=== PATIENT | female | born 1955 | race Caucasian/White ===

== ENCOUNTER 2016-12-31 03:24 | Observation (INO) | payer BC ==
[2016-12-31] VITALS (11 sets, daily range): BP systolic 139–188; BP diastolic 70–99; PULSE 60–83; RESP 14–16; TEMP 97.4–98.5; O2SAT 9–99
[2016-12-31] MEDS ORDERED: ZITH500T PO (03:42)
[2016-12-31] MEDS ORDERED: METO50TA PO (03:42)
[2016-12-31] MEDS ORDERED: MORPHINE SULFATE 4 MG/ML INJ IV PUSH ONE (03:45)
[2016-12-31] MEDS ORDERED: SODIUM CHLORIDE 0.9% FLUSH 10 ML FLUSH IVF PRN (03:45)
[2016-12-31] MEDS ORDERED: ONDANSETRON HCL 4 MG/2 ML VIAL IV PUSH ONE ×2 (03:45→04:30)
--- NOTE | 2016-12-31 03:47 | PD ---
HPI Chief Complaint: Chest Pain Time Seen by Provider: 03:41 Travel History International Travel<30 days: No Contact w/Intl Traveler<30days: No Traveled to known affect area: No History of Present Illness HPI 61-year-old female with history of hypertension, recently treated for bronchitis with Zithromax injections in the past few days, presents to the ER today with a substernal and epigastric discomfort which she currently rates at a 7 out of 10. She denies any nausea, vomiting, but has been having some diarrhea. She does not know any alleviating or exacerbating factors. She denies previous histories. Modifying Factors: None Associated Signs & Symptoms: Chest pains, abdominal pains Risk Factors: None PFSH Past Medical History Diminished Hearing: No Hypertension: Yes Tetanus Vaccination: < 5 Years Influenza Vaccination: No Menopausal: Yes Tubal Ligation: Yes Social History Alcohol Use: Yes (SOCIALLY) Tobacco Use: Yes (1PPD) Substance Use: No Allergies-Medications (Allergen,Severity, Reaction): Coded Allergies: No Known Allergies (Unverified , 12/31/16) Reported Meds & Prescriptions Reported Meds & Active Scripts Active Reported Zithromax (Azithromycin) 500 Mg Tab 500 Mg PO DAILY Metoprolol Tartrate 50 Mg Tab 50 Mg PO BID Review of Systems Except as stated in HPI: all other systems reviewed are Neg Physical Exam Narrative GENERAL: Well-developed middle age white female patient currently in mild distress. Awake and oriented 3. SKIN: Focused skin assessment warm/dry. HEAD: Atraumatic. Normocephalic. EYES: Pupils equal and round. No scleral icterus. No injection or drainage. ENT: No nasal bleeding or discharge. Mucous membranes pink and moist. NECK: Trachea midline. No JVD. CARDIOVASCULAR: Regular rate and rhythm. No murmur appreciated. RESPIRATORY: No accessory muscle use. Clear to auscultation. Breath sounds equal bilaterally. GASTROINTESTINAL: Abdomen soft, epigastric tenderness without guarding or rebound, nondistended. Hepatic and splenic margins not palpable. MUSCULOSKELETAL: No obvious deformities. No clubbing. No cyanosis. No edema. NEUROLOGICAL: Awake and alert. No obvious cranial nerve deficits. Motor grossly within normal limits. Normal speech. PSYCHIATRIC: Appropriate mood and affect; insight and judgment normal. Data Data Last Documented VS Vital Signs Date Time Temp Pulse Resp B/P Pulse Ox O2 Delivery O2 Flow Rate FiO2 12/31/16 03:46 81 16 99 Room Air 12/31/16 03:45 188/99 12/31/16 03:30 97.5 Orders Electrocardiogram (12/31/16 03:41) Ckmb (Isoenzyme) Profile (12/31/16 03:41) Complete Blood Count With Diff (12/31/16 03:41) Comprehensive Metabolic Panel (12/31/16 03:41) Magnesium (Mg) (12/31/16 03:41) Prothrombin Time / Inr (Pt) (12/31/16 03:41) Act Partial Throm Time (Ptt) (12/31/16 03:41) Troponin I (12/31/16 03:41) Lipase (12/31/16 03:41) Chest, Single Ap (12/31/16 03:41) Ecg Monitoring (12/31/16 03:41) Bilateral Bp Monitoring (12/31/16 03:41) Iv Access Insert/Monitor (12/31/16 03:41) Oximetry (12/31/16 03:41) Oxygen Administration (12/31/16 03:41) Sodium Chloride 0.9% Flush (Ns Flush) (12/31/16 03:45) Morphine Inj (Morphine Inj) (12/31/16 03:45) Ondansetron Inj (Zofran Inj) (12/31/16 03:45) Ondansetron Inj (Zofran Inj) (12/31/16 04:30) Al-Mag Hy-Si 40-40-4 Mg/Ml Liq (Mag-Al P (12/31/16 04:45) Lidocaine 2% Viscous (Xylocaine 2% Visco (12/31/16 04:45) Labs Laboratory Tests Test 12/31/16 03:50 White Blood Count 10.6 TH/MM3 Red Blood Count 4.96 MIL/MM3 Hemoglobin 15.9 GM/DL Hematocrit 46.9 % Mean Corpuscular Volume 94.4 FL Mean Corpuscular Hemoglobin 32.1 PG Mean Corpuscular Hemoglobin 34.0 % Concent Red Cell Distribution Width 14.2 % Platelet Count 207 TH/MM3 Mean Platelet Volume 7.5 FL Neutrophils (%) (Auto) 70.5 % Lymphocytes (%) (Auto) 18.9 % Monocytes (%) (Auto) 6.2 % Eosinophils (%) (Auto) 3.4 % Basophils (%) (Auto) 1.0 % Neutrophils # (Auto) 7.5 TH/MM3 Lymphocytes # (Auto) 2.0 TH/MM3 Monocytes # (Auto) 0.7 TH/MM3 Eosinophils # (Auto) 0.4 TH/MM3 Basophils # (Auto) 0.1 TH/MM3 CBC Comment DIFF FINAL Differential Comment Prothrombin Time 11.3 SEC Prothromb Time International 1.0 RATIO Ratio Activated Partial 29.9 SEC Thromboplast Time Sodium Level 142 MEQ/L Potassium Level 3.9 MEQ/L Chloride Level 108 MEQ/L Carbon Dioxide Level 26.5 MEQ/L Anion Gap 8 MEQ/L Blood Urea Nitrogen 22 MG/DL Creatinine 0.80 MG/DL Estimat Glomerular Filtration 73 ML/MIN Rate Random Glucose 90 MG/DL Calcium Level 9.0 MG/DL Magnesium Level 2.5 MG/DL Total Bilirubin 0.4 MG/DL Aspartate Amino Transf 59 U/L (AST/SGOT) Alanine Aminotransferase 42 U/L (ALT/SGPT) Alkaline Phosphatase 86 U/L Total Creatine Kinase 50 U/L Troponin I LESS THAN 0.02 NG/ML Total Protein 7.3 GM/DL Albumin 3.9 GM/DL Lipase 193 U/L MDM Medical Decision Making Medical Screen Exam Complete: Yes Emergency Medical Condition: Yes Medical Record Reviewed: Yes Interpretation(s) EKG shows NSR, no ST elevation or depression, and no arrhythmias. No significant T-wave inversions. Laboratory Tests Test 12/31/16 03:50 Hemoglobin 15.9 GM/DL (11.6-15.3) Hematocrit 46.9 % (35.0-46.0) Neutrophils (%) (Auto) 70.5 % (16.0-70.0) Chloride Level 108 MEQ/L (98-107) Blood Urea Nitrogen 22 MG/DL (7-18) Estimat Glomerular Filtration 73 ML/MIN (>89) Rate Aspartate Amino Transf 59 U/L (15-37) (AST/SGOT) Troponin I LESS THAN 0.02 NG/ML (0.02-0.05) Last 24 hours Impressions Chest X-Ray 12/31/16 8775 Signed Impressions: Service Date/Time: December 03:41 - CONCLUSION: 1. Bilateral hyperinflation which could indicate underlying emphysema. 2. No evidence of pneumonia. Elmer Hebert MD Differential Diagnosis Chest and abdominal painsgastritis versus gastroenteritis versus ammonia versus ACS Narrative Course Lab work did not show any signs of metabolic issues or significant troponin elevations. EKG did not show ST changes or dysrhythmias. Chest x-ray was otherwise unremarkable for any pneumonia or other acute processes. At this point, my plan would be to admit the patient for further evaluation a chest pain center. Patient states she has both parents who of heart problems. She smokes and has hypertension. Moderate risk. Diagnosis Primary Impression: Chest pain Admitting Information Admitting Physician Requests: Admit Elias Chatterjee MD Dec 31, 2016 03:47
[2016-12-31 04:06] LABS: AUTOMATED NEUTROPHIL # 7.5 TH/MM3 (1.8-7.7); BASOPHIL # 0.1 TH/MM3 (0-0.2); EOSINOPHIL # 0.4 TH/MM3 (0-0.4); EOSINOPHIL % 3.4 % (0.0-4.0); HEMATOCRIT 46.9 % (35.0-46.0); HEMO FLAGS DIFF FINAL; LYMPH % 18.9 % (9.0-44.0); MEAN CELL VOLUME 94.4 FL (80.0-100.0); MEAN CORPUSCULAR HEMOGLOBIN 32.1 PG (27.0-34.0); MONO % 6.2 % (0.0-8.0); NEUT % 70.5 % (16.0-70.0); PLATELET COUNT 207 TH/MM3 (150-450); RED BLOOD COUNT 4.96 MIL/MM3 (4.00-5.30); RED CELL DISTRIBUTION WIDTH 14.2 % (11.6-17.2); WHITE BLOOD COUNT 10.6 TH/MM3 (4.0-11.0)
[2016-12-31 04:17] LABS: APTT (PATIENT) 29.9 SEC (24.3-30.1); PROTHROMBIN TIME - PATIENT 11.3 SEC (9.8-11.6)
--- NOTE | 2016-12-31 04:21 | RADRPT ---
EXAM DATE/TIME: 12/31/2016 03:41 [facility] COMPARISON: No previous studies available for comparison. INDICATIONS : Chest pain. MEDICAL HISTORY : None. SURGICAL HISTORY : None. ENCOUNTER: Initial ACUITY: 1 day PAIN SCORE: 4/10 LOCATION: Bilateral chest FINDINGS: A single view of the chest demonstrates the lungs to be symmetrically hyperinflated without evidence of mass, infiltrate or effusion. The cardiomediastinal contours are unremarkable. Osseous structure s are intact. CONCLUSION: 1. Bilateral hyperinflation which could indicate underlying emphysema. 2. No evidence of pneumonia. Elmer Hebert MD on December 31, 2016 at 4:19 Board Certified Radiologist. This report was verified electronically.
[2016-12-31 04:23] LABS: ALKALINE PHOSPHATASE 86 U/L (45-117); TOTAL BILIRUBIN ADULT 0.4 MG/DL (0.2-1.0)
[2016-12-31 04:28] LABS: ALT (GPT) 42 U/L (10-53); ANION GAP 8 MEQ/L (5-15); AST (GOT) 59 U/L (15-37); BICARBONATE 26.5 MEQ/L (21.0-32.0); BLOOD UREA NITROGEN 22 MG/DL (7-18); CHLORIDE 108 MEQ/L (98-107); CREATINE KINASE 50 U/L (26-192); GLOMERULAR FILTRATION RATE 73 ML/MIN (>89); MAGNESIUM 2.5 MG/DL (1.5-2.5); POTASSIUM 3.9 MEQ/L (3.5-5.1); SODIUM (NA) 142 MEQ/L (136-145)
[2016-12-31] MEDS ORDERED: SODIUM CHLORIDE 0.9% FLUSH 10 ML FLUSH IV FLUSH PRN (04:45)
[2016-12-31] MEDS ORDERED: LIDOCAINE VISCOUS 2% SOLN 15 ML UDC PO ONE (04:45)
[2016-12-31] MEDS ORDERED: ALUMINUM/MAGNESIUM/SIMETH 30 ML CUP PO ONE (04:45)
[2016-12-31] MEDS ORDERED: METOPROLOL TARTRATE 50 MG TAB PO ONE (05:30)
[2016-12-31 07:36] LABS: CREATINE KINASE 38 U/L (26-192)
[2016-12-31] MEDS ORDERED: SODIUM CHLORIDE 0.9% FLUSH 10 ML FLUSH IV FLUSH SCH (09:00)
--- NOTE | 2016-12-31 09:26 | HHI.HP ---
HPI Primary Care Physician Hardik Fenton DO Chief Complaint Chest pain History of Present Illness This is a 61-year-old female that presents to ED via private vehicle with a complaint of a chest discomfort that began 10:00 last evening while she is playing with her grandchildren. States it lasted a couple hours. Tried Tums thinking that would help but it did not. Notice that it hurt more when she would drink water. She was little nauseous with a little diaphoretic with it. No shortness of breath. Denies history of CAD. Cannot recall ever having a stress test. She also states that she has had some sinus drainage and was started on Zithromax yesterday at an urgent care center. Review of Systems General: Patient denies fevers, chills recent, and recent travel HEENT: Patient denies headache, sore throat, difficulty swallowing however it seemed the discomfort was worsened when she swallowed water. She's had some postnasal drainage as well.. Cardiovascular: Has the chest discomfort as mentioned above. Denies sensation of heart beating rapidly or irregularly. No syncope. She was diaphoretic. Respiratory: Denies shortness of breath or inspirational chest discomfort. Denies coughing wheezing or hemoptysis. GI: She was nauseous. Patient denies vomiting, diarrhea, abdominal pain, bloody stools. Musculoskeletal: Patient denies joint pain or edema. Denies calf pain or edema. Neurovascular: Patient denies numbness, tingling, weakness in extremities. Denies headache. Endocrine: Denies polyuria and polydipsia. Hematologic: Denies easy bruising. Skin: Denies rash or itching. Past Family Social History Allergies: Coded Allergies: No Known Allergies (Unverified , 12/31/16) Past Medical History Hypertension and tobacco abuse. Denies hyperlipidemia diabetes and CAD. Past Surgical History Tubal ligation. Reported Medications Reported Meds & Active Scripts Active Reported Zithromax (Azithromycin) 500 Mg Tab 500 Mg PO DAILY Metoprolol Tartrate 50 Mg Tab 50 Mg PO BID Active Ordered Medications Current Medications Medications (Trade) Dose Ordered Sig/Jeniffer Route Start Time Stop Time Status Last Admin (NS Flush) 2 ml UNSCH PRN IVF 12/31/16 03:45 12/31/16 04:33 (NS Flush) 2 ml UNSCH PRN IV FLUSH 12/31/16 04:45 (NS Flush) 2 ml BID IV FLUSH 12/31/16 09:00 Family History Her mother had an AK at age 75. Social History Patient has smoked one pack of cigarettes daily for 35 years. Denies alcohol or illicit drugs. She is . She works in sales. Physical Exam Vital Signs Vital Signs Date Time Temp Pulse Resp B/P Pulse Ox O2 Delivery O2 Flow Rate FiO2 12/31/16 07:22 97.6 60 16 139/76 97 12/31/16 05:49 70 14 150/71 90 Room Air 12/31/16 05:05 96 21 12/31/16 04:43 76 16 186/91 96 Room Air 12/31/16 03:46 81 16 99 Room Air 12/31/16 03:45 99 Room Air 12/31/16 03:45 81 16 188/99 99 Room Air 12/31/16 03:45 16 99 Room Air 12/31/16 03:40 83 16 181/97 98 Room Air 12/31/16 03:30 97.5 77 16 144/82 98 Room Air Physical Exam GENERAL: This is a well-nourished, well-developed patient, in no apparent distress. Patient speaks in clear complete sentences. Patient is pleasant. HEENT: Head is atraumatic and normocephalic. Neck is supple without lymphadenopathy and trachea is midline. No JVD or carotid bruits. CARDIOVASCULAR: Regular rate and rhythm without murmurs, gallops, or rubs. RESPIRATORY: Clear to auscultation. Breath sounds equal bilaterally. No wheezes , rales, or rhonchi. Chest wall is nontender. No use of accessory muscles. GASTROINTESTINAL: Abdomen is nontender, nondistended. Abdomen soft. No obvious pulsatile mass or bruit. No CVA tenderness. Strong femoral pulses bilaterally. Normal bowel sounds in all quadrants. MUSCULOSKELETAL: Patient is moving upper and lower extremities freely. No calf tenderness or edema, no Homans sign. Strong pulses in upper and lower extremities. NEUROLOGICAL: Patient is alert and oriented. Cranial nerves 2-12 are grossly intact. No focal deficits and speech is clear. SKIN: No rash and turgor is normal. Laboratory Laboratory Tests Test 12/31/16 12/31/16 03:50 06:55 White Blood Count 10.6 Red Blood Count 4.96 Hemoglobin 15.9 Hematocrit 46.9 Mean Corpuscular Volume 94.4 Mean Corpuscular Hemoglobin 32.1 Mean Corpuscular Hemoglobin 34.0 Concent Red Cell Distribution Width 14.2 Platelet Count 207 Mean Platelet Volume 7.5 Neutrophils (%) (Auto) 70.5 Lymphocytes (%) (Auto) 18.9 Monocytes (%) (Auto) 6.2 Eosinophils (%) (Auto) 3.4 Basophils (%) (Auto) 1.0 Neutrophils # (Auto) 7.5 Lymphocytes # (Auto) 2.0 Monocytes # (Auto) 0.7 Eosinophils # (Auto) 0.4 Basophils # (Auto) 0.1 CBC Comment DIFF FINAL Differential Comment Prothrombin Time 11.3 Prothromb Time International 1.0 Ratio Activated Partial 29.9 Thromboplast Time Sodium Level 142 Potassium Level 3.9 Chloride Level 108 Carbon Dioxide Level 26.5 Anion Gap 8 Blood Urea Nitrogen 22 Creatinine 0.80 Estimat Glomerular Filtration 73 Rate Random Glucose 90 Calcium Level 9.0 Magnesium Level 2.5 Total Bilirubin 0.4 Aspartate Amino Transf 59 (AST/SGOT) Alanine Aminotransferase 42 (ALT/SGPT) Alkaline Phosphatase 86 Total Creatine Kinase 50 38 Troponin I LESS THAN 0.02 LESS THAN 0.02 Total Protein 7.3 Albumin 3.9 Lipase 193 Result Diagram: 12/31/1634912/31/16349 Imaging Last 24 hours Impressions Chest X-Ray 12/31/16 034 Signed Impressions: Service Date/Time: December 03:41 - CONCLUSION: 1. Bilateral hyperinflation which could indicate underlying emphysema. 2. No evidence of pneumonia. Elmer Hebert MD Course EKGs have sinus rhythm without significant ST segment depressions or elevations. Assessment and Plan Assessment and Plan * Chest pain: Patient has had serial cardiac enzymes and EKGs for ruling out purposes. She was seen by Dr. Crystal cardiology in the chest pain center and will have a Francisco protocol ETT. She'll be discharged home if her stress test is nonischemic. * Tobacco abuse: Patient has been counseled on importance of smoking cessation. * Hypertension: Continue current medication. Patient is stable at this time. She is agreeable to this plan. Chucky Abebe Dec 31, 2016 09:26
[2016-12-31] MEDS ORDERED: REGADENOSON INJ 0.4 MG/5 ML SYR ONE (13:43)
--- NOTE | 2016-12-31 14:58 | RADRPT ---
EXAM DATE/TIME: 12/31/2016 12:54 [facility] COMPARISON: No previous studies available for comparison. INDICATIONS : Substernal chest pain. Angina. DOSE: 25.9 mCi Tc99m Myoview at stress. 8.7 mCi Tc99m Myoview at rest. 0.4 mg Lexiscan STRESS SYMPTOMS: Dyspnea, stomach pain and headache. EJECTION FRACTION: 70% MEDICAL HISTORY : Hypertension. Smoker. SURGICAL HISTORY : Tubal ligation. ENCOUNTER: Initial ACUITY: 1 day PAIN SCALE: 7/10 LOCATION: Substernal chest TECHNIQUE: The patient underwent pharmacologic stress with infusion of prescribed dose. Continuous ECG tracing was monitored during stress. Gated SPECT imaging was performed after stress and conventional SPECT i maging was performed at rest. The examination was performed on a SPECT/CT scanner, both attenuation and non-corrected datasets were reviewed. FINDINGS: DISTRIBUTION: The maximum perfused segment at stress is in the anterolateral wall. PERFUSION STUDY: The pattern of perfusion at stress is within normal limits. GATED STUDY: There is intact wall motion and thickening without hypokinetic or dyskinetic segments. CONCLUSION: 1. No significant reversibility to suggest ischemia. 2. Normal wall motion with ejection fraction 70%. RISK CATEGORY: Low (<1% Annual Mortality Rate) Jaime Darby MD on December 31, 2016 at 14:52 Board Certified Radiologist. This report was verified electronically.
--- NOTE | 2016-12-31 15:17 | HHI.DCPOC ---
Discharge Care Plan Diagnosis: (1) Chest pain (2) Hypertension (3) Tobacco abuse Goals to Promote Your Health * To prevent worsening of your condition and complications * To maintain your health at the optimal level Directions to Meet Your Goals Take your medications as prescribed Follow your dietary instruction Follow activity as directed Keep your appointments as scheduled Take your immunizations and boosters as scheduled If your symptoms worsen call your PCP, if no PCP go to Urgent Care Center or Emergency Room Smoking is Dangerous to Your Health. Avoid second hand smoke Call the 24-hour hour crisis hotline for domestic abuse at Chucky Abebe Dec 31, 2016 15:17
--- NOTE | 2016-12-31 17:17 | TR ---
Date Performed: 12/31/2016 Time Performed: 13:48:54 DOCTOR: Felecia Crystal DRUG LIST: CLINICAL HISTORY: REASON FOR TEST: CHEST PAIN REASON FOR ENDING: OBSERVATION: CONCLUSION: Lexiscan stress test was performed under standard four minute protocol. Radionuclid e was injected one minute prior to ending the test. No electrocardiographic abormalities were present to suggest ischemia. Nuclear imaging and interpretation are pending. COMMENTS:
--- NOTE | 2016-12-31 17:19 | TR ---
Date Performed: 12/31/2016 Time Performed: 10:05:17 DOCTOR: Felecia Crystal DRUG LIST: CLINICAL HISTORY: REASON FOR TEST: Chest pain REASON FOR ENDING: OBSERVATION: CONCLUSION: Attempted armand protocol. Test stopped secondary to shortness of breath and leg fati josy. No reproducible chest discomfort or pain. Maximum LN=571 % Target HR Achieved=72.0% Maximum BP=1 42/86 Total Exercise Time=7:24 COMMENTS:
--- NOTE | 2016-12-31 17:19 | EKG ---
Date Performed: 12/31/2016 Time Performed: 11:05:38 PTAGE: 61 years EKG: Sinus rhythm WITH FIRST DEGREE AV BLOCK ABNORMAL ECG Since PREVIOUS TRACING , no significant change noted PREVIOUS TRACIN12/31/2016 07.22 DOCTOR: Felecia Crystal Interpretating Date/Time 12/31/2016 17:17:27
--- NOTE | 2016-12-31 17:24 | EKG ---
Date Performed: 12/31/2016 Time Performed: 07:22:55 PTAGE: 61 years EKG: Sinus rhythm NORMAL ECG Since PREVIOUS TRACING , no significant change noted DOCTOR: Felecia Crystal Interpretating Date/Time 12/31/2016 17:22:38
--- NOTE | 2016-12-31 17:25 | EKG ---
Date Performed: 12/31/2016 Time Performed: 03:41:55 PTAGE: 61 years EKG: Sinus rhythm POSSIBLE LEFT ATRIAL ENLARGEMENT POSSIBLE RIGHT VENTRICULAR CONDUCTION DELAY BORDERLINE ECG NO PREVIOUS TRACING DOCTOR: Felecia Crystal Interpretating Date/Time 12/31/2016 17:23:43
== END 2016-12-31 16:37 | disposition home or self-care (01) ==
LOC: NEPC 03:24 → NEDA 04:41 → NEPHCDU 06:38
PROVIDERS: ADMIT Internal Medicine Cardiovascular Disease; ATTEND Internal Medicine Cardiovascular Disease
DX: R07.9 Chest pain, unspecified (principal); I10 Essential (primary) hypertension; I44.0 Atrioventricular block, first degree; F17.210 Nicotine dependence, cigarettes, uncomplicated
CPT/HCPCS: 71010; 78452; 80053; 82550; 83690; 83735; 84484; 85025; 85610; 85730; 93005; 93017; 96374; 99285; A9502; G0378; J2405; J2785

== ENCOUNTER 2017-09-01 10:31 | Emergency (ER) | payer BC ==
[~2017-09-01] VITALS: Ht 157.5 cm; Wt 72.0 kg
[~2017-09-01 10:31] MED LIST: METO50TA PO; ZITH500T PO
[2017-09-01 10:43] VITALS: BP 171/81; PULSE 64; RESP 17; TEMP 98.4; O2SAT 97
--- NOTE | 2017-09-01 11:02 | PD ---
HPI Chief Complaint: Musculoskeletal Complaint Time Seen by Provider: 10:52 Travel History International Travel<30 days: No Contact w/Intl Traveler<30days: No Traveled to known affect area: No History of Present Illness HPI 61-year-old female presents to the emergency department with complaint of right hand, wrist, forearm pain after tripping over a sidewalk and falling today. She denies hitting her head or loss of consciousness. Denies neck pain or back pain. Denies other extremity pain. Denies chest pain, shortness breath, abdominal pain, vomiting. Rates pain 8/10. Describes it as throbbing. Has taken Advil 800 mg an hour ago for pain. Says she has not moved her arm at all because she is scared to. Pain radiates up the arm at times. Pain is constant. Primary care provider is in [facility]. No known allergies. History of hypertension. Has no other medical complaints. No other modifying factors or associated signs and symptoms. PFSH Past Medical History Heart Rhythm Problems: No Cardiac Catheterization: No Cardiovascular Problems: Yes High Cholesterol: No Congestive Heart Failure: No Diabetes: No Diminished Hearing: No Heparin Induced Thrombocytopen: No Hypertension: Yes Tetanus Vaccination: < 5 Years Menopausal: Yes Tubal Ligation: Yes Past Surgical History Coronary Artery Bypass Graft: No Family History Family Myocardial Infarction: Yes (mother, father) Social History Alcohol Use: Yes (SOCIALLY) Tobacco Use: Yes (quit 8 days ago ) Substance Use: No Allergies-Medications (Allergen,Severity, Reaction): Coded Allergies: No Known Allergies (Unverified Adverse Reaction, Unknown, 09/01/17) Reported Meds & Prescriptions Reported Meds & Active Scripts Active Ibuprofen 800 Mg Tab 800 Mg PO Q6HR PRN Reported Metoprolol Tartrate 50 Mg Tab 50 Mg PO BID Review of Systems Except as stated in HPI: all other systems reviewed are Neg Physical Exam Narrative GENERAL: Well-nourished, well-developed female patient, in no acute distress SKIN: Warm and dry. HEAD: Atraumatic. Normocephalic. EYES: Pupils equal and round. No scleral icterus. No injection or drainage. ENT: Mucosa pink and moist. Airway patent. NECK: Trachea midline. CARDIOVASCULAR: Regular rate. RESPIRATORY: No accessory muscle use. GASTROINTESTINAL: Rounded. MUSCULOSKELETAL: Right upper extremity is supple nontender with 2+ radial pulse and sensory intact; patient guarding and I am unable to get a good assessment; she will not move her fingers; she is able to extend her arm out and denies elbow pain; she will not allow me to palpate the extremity at all; has greater than 45 abduction of the right shoulder without pain; the wrist appears mildly edematous, without erythema or ecchymosis. No obvious deformities. No clubbing. No cyanosis. NEUROLOGICAL: Awake and alert. Oriented 3. No obvious cranial nerve deficits. Motor grossly within normal limits. Normal speech. PSYCHIATRIC: Appropriate mood and affect; insight and judgment normal. Data Data Last Documented VS Vital Signs Date Time Temp Pulse Resp B/P (MAP) Pulse Ox O2 Delivery O2 Flow Rate FiO2 09/01/17 10:43 98.4 64 17 171/81 (111) 97 Orders Orders Forearm (2vws) (09/01/17 10:56) Hand, Complete (Pfx3xls) (09/01/17 10:56) Wrist, Complete (Bpf1sqw) (09/01/17 10:56) Acetamin-Hydrocod 325-5 Mg ([place] 5-325 (09/01/17 11:30) Ed Discharge Order (09/01/17 12:17) Splint Or Brace Apply/Monitor (09/01/17 12:17) Cockup Hand Splint (09/01/17 ) MDM Medical Decision Making Medical Screen Exam Complete: Yes Emergency Medical Condition: Yes Medical Record Reviewed: Yes Differential Diagnosis Fall, fracture, sprain, dislocation Narrative Course 61-year-old female with right hand, wrist, forearm pain after mechanical fall today. Denies hitting her head or loss of consciousness. Denies neck pain or back pain. I am unable to palpate the extremity at all secondary to patient guarding. She extended her elbow and lifted her arm at the shoulder without pain. I offered the patient pain medication and she declined at this time. Right hand, wrist, forearm x-ray ordered. 1125: Patient asking for pain medication. [place] ordered. 1216: Right hand, wrist, forearm x-rays are all unremarkable with no acute findings. Discussed x-ray findings with the patient. Velcro wrist splint provided for support. Ibuprofen prescribed for home. Instructed patient to follow-up in 7-10 days if symptoms persist. Instructed patient to follow up with primary care provider. Patient verbalizes understanding and agreement with treatment plan. Patient is medically cleared and stable for discharge. Discussed reasons to return to the emergency department. Patient agrees with treatment plan. The patients vital signs are stable and the patient is stable for outpatient follow-up and treatment. Patient discharged home, stable and in no acute distress. Diagnosis Primary Impression: Fall Qualified Codes: W19.XXXA - Unspecified fall, initial encounter Additional Impressions: Right wrist injury Qualified Codes: S69.91XA - Unspecified injury of right wrist, hand and finger (s), initial encounter Injury of right hand Qualified Codes: S69.91XA - Unspecified injury of right wrist, hand and finger (s), initial encounter Right forearm injury Qualified Codes: S59.911A - Unspecified injury of right forearm, initial encounter Referrals: Primary Care Physician Patient Instructions: General Instructions, Hand Sprain (ED), Wrist Sprain (ED) Additional Instructions: Tylenol or ibuprofen as directed and as needed to reduce pain Rest, ice, compress, and elevate extremity to decrease pain and inflammation Wrist Splint for support Avoid aggravating activity; increase activity as tolerated Follow-up with primary care provider Return to the emergency department immediately with worsening symptoms Med/Other Pt SpecificInfo: Prescription(s) given Scripts Ibuprofen (Ibuprofen) 800 Mg Tab 800 MG PO Q6HR Y for PAIN, #30 TAB 0 Refills Prov: Nohelia Haro 09/01/17 Disposition: 01 DISCHARGE HOME Condition: Stable Nohelia Haro Sep 01, 2017 11:02
[2017-09-01] MEDS ORDERED: ACETAMINOPHEN/HYDROcodone 325 MG/5 MG TAB PO ONE (11:30)
--- NOTE | 2017-09-01 12:06 | RADRPT ---
EXAM DATE/TIME: 09/01/2017 11:35 [facility] COMPARISON: No previous studies available for comparison. INDICATIONS : Patient fell and caught herself with her hand MEDICAL HISTORY : None. SURGICAL HISTORY : None. ENCOUNTER: Initial ACUITY: 1 day PAIN SCORE: 0/10 LOCATION: Right Wrist FINDINGS: Three view examination of the right wrist demonstrates no soft tissue swelling, dislocation, or fract ure. The carpal bones are in normal alignment. The joint spaces are maintained. Bony mineralizatio n is normal. CONCLUSION: No evidence of recent bony injury. Ben Lei MD on September 01, 2017 at 12:04 Board Certified Radiologist. This report was verified electronically.
--- NOTE | 2017-09-01 12:06 | RADRPT ---
EXAM DATE/TIME: 09/01/2017 11:34 [facility] COMPARISON: No previous studies available for comparison. INDICATIONS : Patient fell and caught herself with right hand MEDICAL HISTORY : None. SURGICAL HISTORY : None. ENCOUNTER: Initial ACUITY: 1 day PAIN SCORE: 8/10 LOCATION: Right Hand FINDINGS: Three view examination of the right hand demonstrates no soft tissue swelling, dislocation, or fractu re. The carpal bones appear intact. The interphalangeal and metacarpophalangeal joints are intact. Bony mineralization is normal. CONCLUSION: No evidence of recent bony injury. Ben Lei MD on September 01, 2017 at 12:03 Board Certified Radiologist. This report was verified electronically.
--- NOTE | 2017-09-01 12:06 | RADRPT ---
EXAM DATE/TIME: 09/01/2017 11:39 [facility] COMPARISON: No previous studies available for comparison. INDICATIONS : Patient fell and caught herself with her hand MEDICAL HISTORY : None. SURGICAL HISTORY : None. ENCOUNTER: Initial ACUITY: 1 day PAIN SCORE: 8/10 LOCATION: Right Forearm FINDINGS: Two view examination of the right forearm demonstrates no evidence of fracture or dislocation. Bony mineralization is normal. The soft tissue structures are intact. CONCLUSION: No evidence of recent bony injury. Ben Lei MD on September 01, 2017 at 12:04 Board Certified Radiologist. This report was verified electronically.
[2017-09-01] MEDS ORDERED: IBUP1TAB7 PO (12:17)
== END 2017-09-01 12:31 | disposition home or self-care (01) ==
LOC: NEPK 10:31
DX: S59.911A Unspecified injury of right forearm, initial encounter (principal); S69.91XA Unspecified injury of right wrist, hand and finger(s), initial encounter; I10 Essential (primary) hypertension; W10.1XXA Fall (on)(from) sidewalk curb, initial encounter; Y92.480 Sidewalk as the place of occurrence of the external cause; Z72.0 Tobacco use
CPT/HCPCS: 73090; 73110; 73130; 99283; L3908